=== PATIENT | female | born 1990 | race Hispanic/Latino ===

== ENCOUNTER 2024-07-25 07:01 | Emergency (ER) | payer MEDICAID ==
[~2024-07-25] VITALS: Ht 160 cm; Wt 72.6 kg
[2024-07-25] MEDS ORDERED: ketOROlac 15MG/ML VIAL (15MG/ML) IV ONE (08:00)
--- NOTE | 2024-07-25 08:03 | ERN ---
General Chief Complaint: Mechanical Fall Stated Complaint: FALL Time Seen by MD: 07:20 History of Present Illness Initial Comments 34-year-old female who presents for a fall down four stairs. She reports her lost her balance had a mechanical fall. She hit the back of her head. She is unsure if she lost consciousness. Since the fall just prior to arrival, the patient's acquaintance reports that she has been confused, she has been repeating herself. No vomiting. No focal neurologic deficits. She denies any other injuries. No neck pain. Ambulatory. Medical history: Anemia Medications: None She denies at this time Has no PCP. Allergies: Coded Allergies: No Known Allergies (Unverified Allergy, Unknown, 07/25/24) Past Medical History Past Medical History: No Pertinent History Past Surgical History: None ROS Dictation CONSTITUTIONAL: No chills, no fever, no weakness, no diaphoresis, no malaise. HEAD/FACE: No signs of trauma. EENT: No eye pain, no blurred vision, no tearing, no double vision, no ear pain, no ear discharge, no nose pain, no nasal congestion, no throat pain, no throat swelling, no mouth pain. RESPIRATORY: No cough, no orthopnea, no SOB, no stridor, no wheezing. CARDIOVASCULAR: No chest pain, no edema, no palpitations, no syncope. GASTROINTESTINAL/ABDOMINAL: No abdominal pain, no constipation, no diarrhea, no nausea, no vomiting. GENITOURINARY: No abnormal discharge, no dysuria, no frequent urination, no hematuria. No complaints of pain in the genitals. MUSCULOSKELETAL: No back pain, no gout, no joint pain, no joint swelling, no muscle pain, no muscle stiffness, no neck pain. INTEGUMENTARY: No change in color, no change in hair/nails, no dryness, no lesion, no lumps, no rash. NEUROLOGICAL/PSYCH: No anxiety, not depressed, no emotional problem, no num bness, no pre-existing deficit, no history of seizures, no tremors, no weakness. Patient reports headache HEMATOLOGIC/LYMPHATIC: Not anemic, no history of blood clots, no apparent bleeding, no bruising, glands not swollen. All Systems Negative, Except as Noted. Physical Exam Physical Exam Dictation VITAL SIGNS: Reviewed. GENERAL APPEARANCE: Alert, oriented x3, no acute distress, obese. HEAD AND FACE: Non-traumatic. EYES: PERRL, pink conjunctivas, eyelid no trauma, anterior chamber clear. EARS: Pinnas intact and no signs of trauma or erythema. Ear canals clear and no discharge. TMs no erythema. NOSE: No discharge, no bleeding. OROPHARYNX: Mouth normal, teeth no caries, tongue pink. Pharynx clear, no erythema. Tonsils no exudates, no abscesses noted. Mucous membrane moist. NECK: Supple, non-tender, no thyromegaly, no masses, no JVD, no bruits. BREAST: Deferred. CHEST: No tenderness, no crepitus, no paradoxical movement, no retractions. LUNGS: Clear, well-ventilated, symmetric, no rales, no wheezing, no rhonchi, no stridor, good breath sounds bilaterally. HEART: Regular rate, regular rhythm, no murmur, no gallops. VASCULAR: No peripheral edema. ABDOMEN: Soft, positive bowel sounds, nondistended, no guarding, nontender, no rebound, no masses no hepatomegaly, no splenomegaly, no Sosa's sign, no hernias. RECTAL: Deferred. GENITAL: Deferred. NEUROLOGICAL: Normal speech, gross motor function intact, gross sensory function intact. MUSCULOSKELETAL: Neck nontender, full range of motion, back nontender, full range of motion. EXTREMITIES: Nontender, full range of motion. SKIN: Color pink, dry, no turgor, no rash, no lacerations, no abrasions, no contusions. 1 cm laceration to the occiput. Bleeding controlled. Well approximated. LYMPHATICS: Deferred. Results Laboratory and Microbiology Lab and Micro Result Laboratory Tests Test 07/25/24 08:40 Urine HCG, Qualitative NEGATIVE (NEGATIVE) MDM MDM: Differential diagnosis: TBI, skull fracture, concussion, laceration, other Rationale: Tests considered and ordered secondary to shared decision making include: None Previous outside records reviewed: None Risk of complication and/or morbidity or mortality of patient management: None Medications-Per medication reconciliation Need for hospitalization: Patient does not meet criteria for hospitalization. Need for emergency major/minor surgery: No There are no social concerns with this patient. Prescription drug management Prescriptions will include symptomatic care Patient's prior external medical records from other ER visits were reviewed by me as indicated. Prior testing and results from previous visits were reviewed. Prior tests were taken into account with medical decision making and resource utilization, independent historian/historians were used to obtain complete medical history. I independently interpreted the test that were performed, results were reviewed by me and considered findings on radiology if ordered. Medical management and examination interpretation discussions were had by me with other qualified healthcare professionals as indicated for the patient's care. Physical exam is unremarkable other than a 1 cm laceration to the occiput. No indication for repair. It was cleaned here in the ER. Patient received pain control. The CT scan does not show any abnormalities. Symptoms are consistent with concussion. We will DC the PCP follow-up. ED Course Orders Procedure Category Date Status Time Ct Head/Brain W/O CT 07/25/24 Resulted Contrast 07:32 Ketorolac PHA 07/25/24 Complete Tromethamine 15mg/Ml 08:00 ,Urine Test LAB 07/25/24 Complete 07:32 Hydrocodone/Apap PHA 07/25/24 Complete 5/325 ([place] 5/325mg) 08:00 Ketorolac PHA 07/25/24 Complete Tromethamine 15mg/Ml 08:00 Current Medications Medications (Trade) Dose Ordered Sig/Becky Route PRN Reason Start Time Stop Time Status Last Admin Dose Admin Acetaminophen/ Hydrocodone Bitart (NORco 5/325MG) 1 tab ONCE ONCE PO 07/25/24 08:00 07/25/24 08:01 DC 07/25/24 08:08 Ketorolac Tromethamine (toRADol) 15 mg ONCE ONCE IM 07/25/24 08:00 07/25/24 08:01 DC 07/25/24 08:09 Ketorolac Tromethamine (toRADol) 15 mg ONCE ONCE IV 07/25/24 08:00 07/25/24 07:58 DC Vital Signs Date Time Temp Pulse Resp B/P (MAP) Pulse Ox O2 Delivery O2 Flow Rate FiO2 07/25/24 09:49 97.5 92 18 123/75 99 Room Air* 0 21 07/25/24 08:52 98.1 84 16 108/73 99 Room Air* 0 21 07/25/24 07:10 87 16 123/79 94 Room Air* 0 21 07/25/24 07:02 97.9 83 20 121/78 99 Room Air DX & DISP Disposition: Discharge Departure Impression: Primary Impression: Head injury Additional Impressions: Concussion, Scalp laceration Condition: Stable Additional Instructions: Based on her presentation, you may have a concussion. The CT scan of your brain does not show any fractures or major abnormalities. You do have a laceration to the back of your head. Keep it clean with soap and water. Apply pressure for mild bleeding. It will heal on its own without rep air. Regarding the concussion, I recommend rest both physically and mentally for the next 24-48 hours. Avoid any aggressive physical activity. In advance your activity as tolerated. Sleep is important for recovery. Maintain a regular sleep schedule to aid in healing. For pain management, you can take 1000 mg of Tylenol or 800 mg of ibuprofen. These medications are [id number]. You can alternate these medications every 4 hours as needed. Please return to the emergency department if you have any consistent headache, vomiting, confusion, or any other concerning symptom. I recommend he follow up with her primary doctor in 1-2 days for re-evaluation. Referrals: SELF,REFERRAL (PCP) YIN PRICE DO Jul 25, 2024 08:03
[2024-07-25] MEDS: HYDROcodone/APAP 5/325 1 TAB TABLET PO ONE (08:08)
[2024-07-25] MEDS: ketOROlac 15MG/ML VIAL (15MG/ML) IM ONE (08:09)
--- NOTE | 2024-07-25 10:00 | HMCIMG ---
Exam: NONCONTRAST CT BRAIN REASON: head injury, confused. COMPARISON: None. TECHNIQUE: Images are obtained from vertex to the skull base. The exam was performed without IV contrast. FINDINGS: There is normal appearing brain parenchyma. There are no focal mass lesions. There is is no evidence of intracranial hemorrhage or acute stroke. Ventricles and sulci appear normal. Posterior fossa and brainstem structures are unremarkable. Paranasal sinuses and remaining extracranial soft tissues appear normal as well. IMPRESSION: 1. Normal noncontrast CT brain. CT was performed with one or more following dose reduction techniques: automated exposure control, adjustment of the mA and kv according to patient's size, or use of a iterative reconstruction technique.
[2024-07-25 12:00] VITALS: BP 124/74; PULSE 90; RESP 18; TEMP 98.1; O2SAT 99
== END 2024-07-25 12:03 | disposition home or self-care (01) ==
LOC: EDH 07:01
DX: S01.01XA Laceration without foreign body of scalp, initial encounter (principal); S06.0XAA Concussion with loss of consciousness status unknown, initial encounter; W10.8XXA Fall (on) (from) other stairs and steps, initial encounter; Y93.89 Activity, other specified; Y92.89 Other specified places as the place of occurrence of the external cause; Y99.8 Other external cause status
CPT/HCPCS: 99285; 70450; 81025; 96372; J1885